=== PATIENT | female | born 1960 | race Caucasian/White ===

== ENCOUNTER 2022-08-28 08:04 | Day surgery (SDC) | payer MEDICAID ==
[~2022-08-28] VITALS: Ht 165.1 cm; Wt 68.5 kg
[~2022-08-28 08:04] MED LIST: MEPERIDINE 100 MG INJ. 100 MG/ML VIAL ONE; MIDAZOLAM HCL 5 MG/5 ML VIAL ONE; SIMETHICONE 40 MG/0.6 ML ML ONE
[2022-08-28 13:37] VITALS: BP_SYST 107
== END 2022-08-28 11:11 | disposition home or self-care (01) ==
LOC: SDS 08:04 → SMU 08:05 → SDS 11:11
PROVIDERS: ATTEND Internal Medicine Gastroenterology
DX: R10.9 Unspecified abdominal pain (principal); K62.89 Other specified diseases of anus and rectum; K29.70 Gastritis, unspecified, without bleeding; K57.30 Diverticulosis of large intestine without perforation or abscess without bleeding; K64.9 Unspecified hemorrhoids; Z79.899 Other long term (current) drug therapy
CPT/HCPCS: 45378; 43239; 87081; 36415; 88305; 88312; 88313; 99152; G0378; J2250; J2175